=== PATIENT | male | born 1940 | race Caucasian/White ===

== ENCOUNTER → 2018-09-13 | Outpatient (CLI) | payer MEDICARE, OTHER | END | disposition home or self-care (01) | LOC: RADUSWWP 12:08 | PROVIDERS: ATTEND Family Medicine | DX: I73.9 Peripheral vascular disease, unspecified (principal) | CPT/HCPCS: 93923 ==

== ENCOUNTER 2019-07-10 18:55 | Observation (INO) | payer MEDICARE, OTHER ==
[2019-07-10 19:30] LABS: Basophils % (A) 1 %; Eosinophils # (A) 0.3 k/uL (0-0.7); Eosinophils % (A) 5 %; HGB 14.1 gm/dL (13.0-17.5); Lymphocytes # (A) 1.4 k/uL (1.0-4.8); Lymphocytes % (A) 24 %; MCH 33.1 pg (25.0-35.0); MCHC 32.7 g/dL (31.0-37.0); MCV 101.2 fL (80.0-100.0); Mean Platelet Volume 8.5; Monocytes # (A) 0.5 k/uL (0-1.0); Monocytes % (A) 8 %; Neutrophils # (A) 3.5 k/uL (1.3-7.7); Neutrophils % (A) 59 %; Platelet Count 188 k/uL (150-450); RBC 4.25 m/uL (4.30-5.90)
[2019-07-10 19:39] LABS: Albumin 3.8 g/dL (3.5-5.0); Calcium 8.6 mg/dL (8.4-10.2); Magnesium 2.5 mg/dL (1.6-2.3); Potassium 4.4 mmol/L (3.5-5.1); Total Bilirubin 0.5 mg/dL (0.2-1.3); Total Protein 6.6 g/dL (6.3-8.2)
--- NOTE | 2019-07-10 19:42 | XR ---
EXAMINATION TYPE: XR chest 2V DATE OF EXAM: 07/10/2019 COMPARISON: Chest x-ray March 10, 2010. HISTORY: Syncope and weakness. TECHNIQUE: Frontal and lateral views of the chest are obtained. FINDINGS: There is no new suspicious focal air space opacity, pleural effusion, or pneumothorax seen . The cardiac silhouette size is slightly more prominent in upper limits of normal with some new carey tral vascular congestion felt present. Overlying EKG leads redemonstrated. Multilevel spurring in tho racic spine noted. IMPRESSION: New Mild central vascular congestion. No new suspicious focal infiltrate.
[2019-07-10 19:45] LABS: INR 0.9 (<1.2); Partial Thromboplastin Time 21.8 sec (22.0-30.0); Prothrombin Time 9.8 sec (9.0-12.0)
[2019-07-10 19:59] LABS: Appearance,Urine Clear (Clear); Bilirubin,Urine Negative (Negative); Blood,Urine Negative (Negative); Color,Urine Light Yellow; Glucose,Urine (UA) Negative (Negative); Ketones,Urine Negative (Negative); Leukocyte Esterase,Urine Negative (Negative); Nitrite,Urine Negative (Negative); Protein,Urine Trace (Negative); Specific Gravity,Urine 1.011 (1.001-1.035); Urobilinogen,Urine <2.0 mg/dL (<2.0)
--- NOTE | 2019-07-10 21:30 | ED ---
General Adult HPI - General Chief complaint: Syncope Stated complaint: Syncope Time Seen by Provider: 07/10/19 18:59 Source: patient, EMS Mode of arrival: EMS Limitations: no limitations - History of Present Illness Initial comments: The patient is a 78-year-old male with past history of hypertension, hyperlipidemia and chronic kidney disease who presents emergency room and after had a syncopal episode. Episode was witnessed by the patient's . She states that she thought he may have overdone it today. He did [place]work [place]. They then drove home where the patient ended up cutting the grass with a push mower. The patient came into the house ate dinner and afterwards she was sitting outside on a bench. At this point the patient went unresponsive. He slumped over and his eyes rolled back. was unable to arouse him and therefore called her daughter and EMS. EMS instructed her to lower him to the ground however she was unable to do this without him hitting his head. By the time EMS arrived the patient was arousable to tactile stimuli however remained slightly confused. It was noted that the patient had an episode of urinary incontinence. There is no seizure-like activity. The patient did not bite his tongue. Patient reports to feeling well before the incident. Afterwards states that he has dizziness upon standing. No history of seizure activity in the past. Patient denies any chest pain or shortness of breath. Denies any headaches or visual changes. No back or flank pain. Denies fevers or chills. There are no other alleviating, precipitating or modifying factors - Related Data Home Medications Medication Instructions Recorded Confirmed Allopurinol [Zyloprim] 100 mg PO DAILY 07/21/15 07/10/19 Atorvastatin Calcium [Lipitor] 40 mg PO DAILY 07/21/15 07/10/19 Metoprolol Succinate (ER) [Toprol 100 mg PO HS 07/21/15 07/10/19 XL] Terazosin HCl [Hytrin] 10 mg PO HS 07/21/15 07/10/19 Furosemide [Lasix] 20 - 40 mg PO DAILY PRN 07/10/19 07/10/19 Latanoprost/Pf [Latanoprost 0.005% 1 drop BOTH EYES HS 07/10/19 07/10/19 Eye Drop] Losartan [Cozaar] 25 mg PO DAILY 07/10/19 07/10/19 Previous Rx's Medication Instructions Recorded Aspirin 81 mg PO DAILY chew 07/12/19 amLODIPine [Norvasc] 5 mg PO DAILY #30 tab 07/12/19 Allergies Allergy/AdvReac Type Severity Reaction Status Date / Time No Known Allergies Allergy Verified 07/10/19 21:43 Review of Systems ROS Statement: Those systems with pertinent positive or pertinent negative responses have been documented in the HPI. ROS Other: All systems not noted in ROS Statement are negative. Past Medical History Past Medical History: Hyperlipidemia, Hypertension, Renal Disease Additional Past Medical History / Comment(s): GOUT, KIDNEY DISEASE-MODERATE History of Any Multi-Drug Resistant Organisms: None Reported Past Surgical History: Appendectomy Additional Past Surgical History / Comment(s): suzette eyelid, suzette carpal tunnel, D&C, rt knee arthroscopy, left knee replacement Past Anesthesia/Blood Transfusion Reactions: No Reported Reaction Past Psychological History: No Psychological Hx Reported Smoking Status: Former smoker - Past Family History Brother(s) Family Medical History: Cancer Additional Family Medical History / Comment(s): LUNG CANCER Sister(s) Family Medical History: Cancer Mother Family Medical History: Cancer General Exam Limitations: no limitations General appearance: alert, in no apparent distress Head exam: Present: atraumatic, normocephalic, normal inspection Eye exam: Present: normal appearance, PERRL, EOMI. Absent: scleral icterus, conjunctival injection, periorbital swelling ENT exam: Present: normal exam, mucous membranes moist Neck exam: Present: normal inspection. Absent: tenderness, meningismus, lymphadenopathy Respiratory exam: Present: normal lung sounds bilaterally. Absent: respiratory distress, wheezes, rales, rhonchi, stridor Cardiovascular Exam: Present: regular rate, normal rhythm, normal heart sounds. Absent: systolic murmur, diastolic murmur, rubs, gallop, clicks GI/Abdominal exam: Present: soft, normal bowel sounds. Absent: distended, tenderness, guarding, rebound, rigid Extremities exam: Present: normal inspection, full ROM, normal capillary refill. Absent: tenderness, pedal edema, joint swelling, calf tenderness Back exam: Present: normal inspection Neurological exam: Present: alert, oriented X3, CN II-XII intact Psychiatric exam: Present: normal affect, normal mood Skin exam: Present: warm, dry, intact, normal color. Absent: rash Course Vital Signs 07/10/19 07/10/19 07/10/19 18:57 19:40 19:43 Temperature 98 F Pulse Rate 72 70 71 Respiratory 18 Rate Blood Pressure 148/73 159/75 153/86 Blood Pressure [Sitting] Blood Pressure [Standing] Blood Pressure [Supine] O2 Sat by Pulse 98 Oximetry 07/10/19 07/10/19 07/10/19 19:45 21:21 22:14 Temperature Pulse Rate 73 69 Respiratory 18 Rate Blood Pressure 161/73 163/87 Blood Pressure 155/78 [Sitting] Blood Pressure 158/79 [Standing] Blood Pressure 158/88 [Supine] O2 Sat by Pulse 96 Oximetry EKG Findings - EKG Comments: EKG Findings:: EKG demonstrates a normal sinus rhythm with a ventricular rate of 68. IA interval 186. QRS 86. QTC of 440. Inverted T-wave in lead 3. No acute ST segment elevations. Medical Decision Making - Medical Decision Making Upon arrival the patient was placed into room 8. A thorough history and physical exam was performed. He had been established. The patient was already given a 500 mL bolus then EMS. Orthostatics were obtained and were negative on the patient. Laboratory studies demonstrated a creatinine of 2.1. Glucose 147. Mag of 2.5. Chest x-ray demonstrates new mild central vascular congestion with no new suspicious focal infiltrate. The patient was reevaluated and continues to remain symptomatic. No signs of ectopy on EKG cardiac monitoring. I discussed diagnosis, differential treatment options. I did recommend hospital admission for which the patient did agree. I consult cardiology. I discussed case with Dr. Davenport who requested echo and EEG. Patient was in agreement with the treatment plan and the patient was admitted to floor in stable condition - Lab Data Result diagrams: 07/11/19 02:08 07/11/19 02:08 Lab Results 07/10/19 07/10/19 07/10/19 Range/Units 14:21 14:21 14:21 WBC 6.0 (3.8-10.6) k/uL RBC 4.25 L (4.30-5.90) m/uL Hgb 14.1 (13.0-17.5) gm/dL Hct 43.0 (39.0-53.0) % MCV 101.2 H (80.0-100.0) fL MCH 33.1 (25.0-35.0) pg MCHC 32.7 (31.0-37.0) g/dL RDW 13.0 (11.5-15.5) % Plt Count 188 (150-450) k/uL Neutrophils % 59 % Lymphocytes % 24 % Monocytes % 8 % Eosinophils % 5 % Basophils % 1 % Neutrophils # 3.5 (1.3-7.7) k/uL Lymphocytes # 1.4 (1.0-4.8) k/uL Monocytes # 0.5 (0-1.0) k/uL Eosinophils # 0.3 (0-0.7) k/uL Basophils # 0.0 (0-0.2) k/uL PT 9.8 (9.0-12.0) sec INR 0.9 (<1.2) APTT 21.8 L (22.0-30.0) sec Sodium 138 (137-145) mmol/L Potassium 4.4 (3.5-5.1) mmol/L Chloride 108 H (98-107) mmol/L Carbon Dioxide 24 (22-30) mmol/L Anion Gap 6 mmol/L BUN 33 H (9-20) mg/dL Creatinine 2.21 H (0.66-1.25) mg/dL Est GFR (CKD-EPI)AfAm 32 (>60 ml/min/1.73 sqM) Est GFR (CKD-EPI)NonAf 28 (>60 ml/min/1.73 sqM) Glucose 147 H (74-99) mg/dL Calcium 8.6 (8.4-10.2) mg/dL Magnesium 2.5 H (1.6-2.3) mg/dL Total Bilirubin 0.5 (0.2-1.3) mg/dL AST 26 (17-59) U/L ALT 22 (4-49) U/L Alkaline Phosphatase 106 (38-126) U/L Troponin I (0.000-0.034) ng/mL Total Protein 6.6 (6.3-8.2) g/dL Albumin 3.8 (3.5-5.0) g/dL Urine Color Urine Appearance (Clear) Urine pH (5.0-8.0) Ur Specific [place] (1.001-1.035) Urine Protein (Negative) Urine Glucose (UA) (Negative) Urine Ketones (Negative) Urine Blood (Negative) Urine Nitrite (Negative) Urine Bilirubin (Negative) Urine Urobilinogen (<2.0) mg/dL Ur Leukocyte Esterase (Negative) 07/10/19 07/10/19 Range/Units 14:21 19:49 WBC (3.8-10.6) k/uL RBC (4.30-5.90) m/uL Hgb (13.0-17.5) gm/dL Hct (39.0-53.0) % MCV (80.0-100.0) fL MCH (25.0-35.0) pg MCHC (31.0-37.0) g/dL RDW (11.5-15.5) % Plt Count (150-450) k/uL Neutrophils % % Lymphocytes % % Monocytes % % Eosinophils % % Basophils % % Neutrophils # (1.3-7.7) k/uL Lymphocytes # (1.0-4.8) k/uL Monocytes # (0-1.0) k/uL Eosinophils # (0-0.7) k/uL Basophils # (0-0.2) k/uL PT (9.0-12.0) sec INR (<1.2) APTT (22.0-30.0) sec Sodium (137-145) mmol/L Potassium (3.5-5.1) mmol/L Chloride (98-107) mmol/L Carbon Dioxide (22-30) mmol/L Anion Gap mmol/L BUN (9-20) mg/dL Creatinine (0.66-1.25) mg/dL Est GFR (CKD-EPI)AfAm (>60 ml/min/1.73 sqM) Est GFR (CKD-EPI)NonAf (>60 ml/min/1.73 sqM) Glucose (74-99) mg/dL Calcium (8.4-10.2) mg/dL Magnesium (1.6-2.3) mg/dL Total Bilirubin (0.2-1.3) mg/dL AST (17-59) U/L ALT (4-49) U/L Alkaline Phosphatase (38-126) U/L Troponin I <0.012 (0.000-0.034) ng/mL Total Protein (6.3-8.2) g/dL Albumin (3.5-5.0) g/dL Urine Color Light Yellow Urine Appearance Clear (Clear) Urine pH 6.0 (5.0-8.0) Ur Specific [place] 1.011 (1.001-1.035) Urine Protein Trace H (Negative) Urine Glucose (UA) Negative (Negative) Urine Ketones Negative (Negative) Urine Blood Negative (Negative) Urine Nitrite Negative (Negative) Urine Bilirubin Negative (Negative) Urine Urobilinogen <2.0 (<2.0) mg/dL Ur Leukocyte Esterase Negative (Negative) Disposition Clinical Impression: Syncope, CKD (chronic kidney disease) Disposition: ADMITTED IP TO THIS [facility] Condition: Stable Is patient prescribed a controlled substance at d/c from ED?: No Decision to Admit Reason: Admit from EC Decision Date: 07/10/19 Decision Time: 21:30
[2019-07-10] MEDS ORDERED: NALOXONE 0.4 MG/ML 1 ML VIAL IV PRN (21:31)
[2019-07-10] MEDS ORDERED: FUROSEMIDE 20 MG TAB PO PRN (23:16)
[2019-07-10] MEDS: DOXAZOSIN 4 MG TAB PO SCH (23:52)
[2019-07-10] MEDS: METOPROLOL SUCCINATE (ER) 50 MG TAB.ER.24H PO SCH (23:53)
[2019-07-11 02:44] LABS: Basophils % (A) 0 %; Eosinophils # (A) 0.1 k/uL (0-0.7); Eosinophils % (A) 2 %; HGB 13.7 gm/dL (13.0-17.5); Lymphocytes # (A) 1.1 k/uL (1.0-4.8); Lymphocytes % (A) 17 %; MCH 33.5 pg (25.0-35.0); MCHC 32.6 g/dL (31.0-37.0); Macrocytosis Slight; Mean Platelet Volume 8.4; Monocytes # (A) 0.5 k/uL (0-1.0); Monocytes % (A) 8 %; Neutrophils # (A) 4.4 k/uL (1.3-7.7); Neutrophils % (A) 70 %; Platelet Count 169 k/uL (150-450); RBC 4.07 m/uL (4.30-5.90); WBC 6.3 k/uL (3.8-10.6)
[2019-07-11 02:47] LABS: Calcium 8.6 mg/dL (8.4-10.2); Potassium 4.8 mmol/L (3.5-5.1)
[2019-07-11] MEDS ORDERED: SODIUM CHLORIDE 0.9% 1,000 ML IV STA (08:24)
[2019-07-11] MEDS: ATORVASTATIN 40 MG TAB PO SCH (08:49)
[2019-07-11] MEDS: LOSARTAN 25 MG TAB PO SCH (08:50)
[2019-07-11] MEDS: ALLOPURINOL 100 MG TAB PO SCH (08:50)
--- NOTE | 2019-07-11 10:38 | P.CRDCN ---
History of Present Illness History of present illness: HISTORY OF PRESENTING ILLNESS This is a pleasant 78-year-old male past medical history significant for minimal nonobstructive coronary artery disease, hypertension, chronic kidney disease and dyslipidemia. He follows in the office with Dr. Saenz. We have been asked to see in consultation for syncope. He states he was working in the yard yesterday with his cutting grass and cleaning the yard. He had finished cutting and had lunch. Him and his were sitting down on a bench outside. According to the patient the next thing he remembers he was in the back of an ambulance. According to his she asked him to unscrew the sprinkler from the hose and he did so without difficulty then he became unresponsive and his eyes rolled back in his head. He did have lose of bladder control. He woke up in the ambulance feeling diaphoretic and confused. He denies feeling any chest pain, shortness of breath, dizziness, palpitations, diaphoresis, nausea or vomiting prior to passing out. He states he has never passed out before. He has had no change in his diet, no fever/chills, no diarrhea or vomiting. Telemetry tracings have been unremarkable. On EMS arrival blood pressure was in the 150 systolic with a heart rate of 57. DIAGNOSTICS EKG reveals sinus mechanism with no acute ST or T wave abnormalities noted. Chest xray mild venous congestion. Laboratory reviewed, WBC 6.3, hemoglobin 13.7, platelets 169, sodium 137, potassium 4.8, creatinine 2.1 on, magnesium 2.5, cardiac enzymes negative 2. Current cardiac medications include atorvastatin 40 mg daily, Lasix daily when necessary, Toprol-XL 100 mg at bedtime and losartan 25 mg daily. Most recent echocardiogram obtained in the office March 2019 revealed normal LV systolic function with no wall motion abnormalities REVIEW OF SYSTEMS At the time of my exam: CONSTITUTIONAL: Denies fever or chills. CARDIOVASCULAR: Denies chest pain, shortness of breath, orthopnea, PND or palpitations. RESPIRATORY: Denies cough. GASTROINTESTINAL: Denies abdominal pain, diarrhea, constipation, nausea or vomiting. MUSCULOSKELETAL: Denies myalgias. NEUROLOGIC: Denies numbness, tingling or weakness. ENDOCRINE: Denies fatigue, weight change, polydipsia or polyurina. GENITOURINARY: Denies burning, hematuria or urgency with micturation. HEMATOLOGIC: Denies history of anemia or bleeding. PHYSICAL EXAMINATION Blood pressure 170/79 heart rate 60 afebrile and maintaining oxygen saturation on room air. CONSTITUTIONAL: No apparent distress. HEENT: Head is normocephalic. Pupils are equal, round. Sclerae anicteric. Mucous membranes of the mouth are moist. No JVD. No carotid bruit. CHEST EXAMINATION: Lungs are clear to auscultation. No chest wall tenderness is noted on palpation or with deep breathing. HEART EXAMINATION: Regular rate and rhythm. S1, S2 heard. No murmurs, gallops or rub. ABDOMEN: Soft, nontender. Positive bowel sounds. EXTREMITIES: 2+ peripheral pulses, no lower extremity edema and no calf te nderness. NEUROLOGIC EXAMINATION: Patient is awake, alert and oriented x3. ASSESSMENT Syncopal episode, clinically sounds neurologic driven given his normal vital signs and telemetry tracings on EMS arrival Hypertension, uncontrolled Hypermagnesemia Dyslipidemia Chronic kidney disease Coronary artery disease, non-obstructive PLAN Orthostatic vital signs obtained were unremarkable. No evidence of arrhythmia on telemetry. Ongoing neurologic evaluation. Follow-up with Dr. Saenz in 1-2 weeks. Thank you kindly for this consultation. Nurse Practitioner note has been reviewed, I agree with a documented findings and plan of care. Patient was seen and examined. Past Medical History Past Medical History: Hyperlipidemia, Hypertension, Renal Disease Additional Past Medical History / Comment(s): GOUT, KIDNEY DISEASE-MODERATE History of Any Multi-Drug Resistant Organisms: None Reported Past Surgical History: Appendectomy Additional Past Surgical History / Comment(s): suzette eyelid, suzette carpal tunnel, D&C, rt knee arthroscopy, left knee replacement Past Anesthesia/Blood Transfusion Reactions: No Reported Reaction Past Psychological History: No Psychological Hx Reported Smoking Status: Former smoker - Past Family History Brother(s) Family Medical History: Cancer Additional Family Medical History / Comment(s): LUNG CANCER Sister(s) Family Medical History: Cancer Mother Family Medical History: Cancer Medications and Allergies Home Medications Medication Instructions Recorded Confirmed Type Allopurinol [Zyloprim] 100 mg PO DAILY 07/21/15 07/10/19 History Atorvastatin Calcium [Lipitor] 40 mg PO DAILY 07/21/15 07/10/19 History Metoprolol Succinate (ER) [Toprol 100 mg PO HS 07/21/15 07/10/19 History Xl] Terazosin HCl [Hytrin] 10 mg PO HS 07/21/15 07/10/19 History Furosemide [Lasix] 20 - 40 mg PO DAILY PRN 07/10/19 07/10/19 History Latanoprost/Pf [Latanoprost 0.005% 1 drop BOTH EYES HS 07/10/19 07/10/19 History Eye Drop] Losartan [Cozaar] 25 mg PO DAILY 07/10/19 07/10/19 History Allergies Allergy/AdvReac Type Severity Reaction Status Date / Time No Known Allergies Allergy Verified 07/10/19 21:43 Physical Exam Vitals: Vital Signs Temp Pulse Pulse Resp BP BP BP 07/11/19 04:00 97.3 F L 68 15 07/10/19 23:25 73 16 07/10/19 22:40 98.2 F 73 16 07/10/19 22:14 69 18 163/87 07/10/19 21:21 155/78 158/79 07/10/19 19:45 73 161/73 07/10/19 19:43 71 153/86 07/10/19 19:40 70 159/75 07/10/19 18:57 98 F 72 18 148/73 BP Pulse Ox 07/11/19 04:00 169/77 97 07/10/19 23:25 07/10/19 22:40 184/79 99 07/10/19 22:14 96 07/10/19 21:21 158/88 07/10/19 19:45 07/10/19 19:43 07/10/19 19:40 07/10/19 18:57 98 Intake and Output 07/10/19 07/11/19 07/11/19 22:59 06:59 14:59 Other: # Voids 1 1 Weight 81.647 kg Results 07/11/19 02:08 07/11/19 02:08 Cardiac Enzymes 07/10/19 07/10/19 07/11/19 Range/Units 14:21 14:21 02:08 AST 26 (17-59) U/L Troponin I <0.012 <0.012 (0.000-0.034) ng/mL Coagulation 07/10/19 Range/Units 14:21 PT 9.8 (9.0-12.0) sec APTT 21.8 L (22.0-30.0) sec CBC 07/10/19 07/11/19 Range/Units 14:21 02:08 WBC 6.0 6.3 (3.8-10.6) k/uL RBC 4.25 L 4.07 L (4.30-5.90) m/uL Hgb 14.1 13.7 (13.0-17.5) gm/dL Hct 43.0 42.0 (39.0-53.0) % Plt Count 188 169 (150-450) k/uL Comprehensive Metabolic Panel 07/10/19 07/11/19 Range/Units 14:21 02:08 Sodium 138 137 (137-145) mmol/L Potassium 4.4 4.8 (3.5-5.1) mmol/L Chloride 108 H 108 H (98-107) mmol/L Carbon Dioxide 24 24 (22-30) mmol/L BUN 33 H 33 H (9-20) mg/dL Creatinine 2.21 H 2.11 H (0.66-1.25) mg/dL Glucose 147 H 126 H (74-99) mg/dL Calcium 8.6 8.6 (8.4-10.2) mg/dL AST 26 (17-59) U/L ALT 22 (4-49) U/L Alkaline Phosphatase 106 (38-126) U/L Total Protein 6.6 (6.3-8.2) g/dL Albumin 3.8 (3.5-5.0) g/dL Current Medications Generic Name Dose Route Start Last Admin Trade Name Freq PRN Reason Stop Dose Admin Allopurinol 100 mg 07/11/19 09:00 Zyloprim PO DAILY [facility] Atorvastatin Calcium 40 mg 07/11/19 09:00 Lipitor PO DAILY [facility] Doxazosin Mesylate 8 mg 07/10/19 23:30 07/10/19 23:52 Cardura PO 8 mg HS MARY ANN Administration Furosemide 20 mg 07/10/19 23:16 Lasix PO DAILY PRN swelling Losartan Potassium 25 mg 07/11/19 09:00 Cozaar PO DAILY [facility] Metoprolol Succinate 100 mg 07/10/19 23:30 07/10/19 23:53 Toprol Xl PO 100 mg HS MARY ANN Administration Naloxone HCl 0.2 mg 07/10/19 21:31 Narcan IV Q2M PRN Opioid Reversal Intake and Output 07/10/19 07/11/19 07/11/19 22:59 06:59 14:59 Other: # Voids 1 1 Weight 81.647 kg 07/11/19 02:08 07/11/19 02:08
--- NOTE | 2019-07-11 10:47 | ECHOF ---
Referral Reason:syncope MEASUREMENTS -------- HEIGHT: 170.2 cm WEIGHT: 81.6 kg BP: 169/77 IVSd: 1.2 cm (0.6 - 1.1) LVIDd: 4.2 cm (3.9 - 5.3) LVPWd: 1.1 cm (0.6 - 1.1) IVSs: 1.8 cm LVIDs: 2.9 cm LVPWs: 1.6 cm RVIDd: 3.1 cm (< 3.3) LAESV Index (A-L): 29.24 ml/m Ao Diam: 2.6 cm (2.0 - 3.7) AV Cusp: 1.6 cm (1.5 - 2.6) EPSS: 0.5 cm MV E Jhonny: 0.90 m/s MV DecT: 130 ms MV A Jhonny: 0.90 m/s MV E/A Ratio: 1.00 RAP: 5.00 mmHg RVSP: 36.08 mmHg MV EF SLOPE: 56.42 mm/s (70 - 150) MV EXCURSION: 15.18 mm (> 18.000) FINDINGS -------- Sinus rhythm. This was a technically adequate study. The left ventricular size is normal. There is mild concentric left ventricular hypertrophy. Overa ll left ventricular systolic function is normal with, an EF between 55 - 60 %. The diastolic fillin g pattern is normal for the age of the patient 12.21. The right ventricle is mildly enlarged. LA is midly dilated 29-33ml/m2. The right atrium is mildly enlarged. Interatrial and interventricular septum intact. There is no evidence of aortic regurgitation. There is no evidence of aortic stenosis. Mild mitral regurgitation is present. Mild tricuspid regurgitation present. There is mild pulmonary hypertension. The right ventricular systolic pressure, as measured by Doppler, is 36.08mmHg. There is no pulmonic regurgitation present. The aortic root size is normal. IVC Not well visulized. There is no pericardial effusion. CONCLUSIONS -------- 1. Sinus rhythm. 2. This was a technically adequate study. 3. The left ventricular size is normal. 4. There is mild concentric left ventricular hypertrophy. 5. Overall left ventricular systolic function is normal with, an EF between 55 - 60 %. 6. The diastolic filling pattern is normal for the age of the patient 12.21 7. The right ventricle is mildly enlarged. 8. LA is midly dilated 29-33ml/m2. 9. The right atrium is mildly enlarged. 10. Interatrial and interventricular septum intact. 11. There is no evidence of aortic regurgitation. 12. There is no evidence of aortic stenosis. 13. Mild mitral regurgitation is present. 14. Mild tricuspid regurgitation present. 15. There is mild pulmonary hypertension. 16. The right ventricular systolic pressure, as measured by Doppler, is 36.08mmHg. 17. There is no pulmonic regurgitation present. 18. The aortic root size is normal. 19. IVC Not well visulized. 20. There is no pericardial effusion. BANQUET LINE COOK: Lynette Dominique RDCS
[2019-07-11] MEDS: SODIUM CHLORIDE 0.9% 1,000 ML IV SCH ×2 (14:06→19:40)
--- NOTE | 2019-07-11 15:45 | MR ---
EXAMINATION TYPE: MR brain wo/w con DATE OF EXAM: 07/11/2019 COMPARISON: None HISTORY: Patient Passed out CONTRAST: Performed utilizing 8 mL intravenous Gadavist gadolinium contrast. TECHNIQUE: Multiplanar, multiecho imaging on a 3.0 Carla magnet is performed through the brain. Stud y is performed within 24 hours of arrival to the hospital. The craniovertebral junction is normal. The pituitary is normal. Diffusion-weighted imaging is performed. No abnormal hyperintensity is present to suggest an acute i ntracranial infarct or acute ischemic change. There are scattered punctate areas of hyperintensity on T2 and Inversion Recovery weighted sequences which are non-specific but can be related to microvascular ischemic changes. This is greater than exp ected for the patient age. Differential diagnosis could include vasculitis, multiple sclerosis, Lyme disease. Ventricles and sulci are appropriate for the patient age. IMPRESSIONS: 1. Multiple bilateral deep white matter scattered punctate hyperintensities most likely related to mi crovascular ischemic change.
--- NOTE | 2019-07-11 17:07 | EEG ---
ELECTROENCEPHALOGRAM REPORT DATE OF SERVICE: 07/11/2019 PREAMBLE: This is a 78-year-old male with syncopal spell. EEG FINDINGS: This is a 21-channel routine EEG recording in a patient utilizing 10-20 international system with referential and bipolar montages. The background consists of well developed, well regulated, moderate voltage activity in 9-10 hertz alpha. Background is posterior-dominant and is reactive to eye opening and closing. Photic driving response was seen with some flash frequencies. Drowsiness was seen with appearance of bilaterally symmetric theta frequency rhythm. Deeper stages of sleep were not seen. No focal or generalized epileptiform activity was seen. EKG rhythm lead revealed no arrhythmia. IMPRESSION: This is a normal awake and drowsy EEG. No focal, lateralized or epileptiform activity was seen. MMSHRUTHIL / JAYANTN: [id number] / MTDD
--- NOTE | 2019-07-11 17:32 | P.CNNES ---
History of Present Illness Consult date: 07/11/19 Requesting physician: Wander Davenport Reason for Consult: Passed out History of Present Illness: Patient is a 78-year-old male with history of hypertension, hyperlipidemia and chronic renal disease, came to the hospital after he had a syncopal episode. Episode was witnessed by patient's . Patient did some housework [place] [facility] and his feels that he may have overdone it. They drove home where the patient ended up cutting the grass with a push mower. Patient was sitting outside on a bench. He was talking to his , who asked him to help her move the swing. He helped her and then put it back. He then again sat down in the chair. At this point the patient went unresponsive without any warning, and next thing he woke up in the ambulance. According to his , he slumped over and his eyes rolled back. was unable to arouse him and thereafter called her daughter and the EMS. EMS instructed patient to be lowered to the ground. She was unable to do this without have hitting his head. By the time EMS arrived, patient was arousable to tactile stimuli, however remains slightly confused. Patient did lose control of urine with this episode. No seizure-like activity noted. No tongue bite. Patient reports to feeling well before the incident. Afterwards he was feeling dizziness upon standing. No history of seizures in the past. No complaints of chest pain or shortness of breath. No headache or visual disturbance. No fever or chills. Patient states that he does take a diuretic. As he had driven back home from up [place], he did not drink enough water although he did take his diuretic. He thinks he may have been dehydrated. Patient's vitals on arrival was blood pressure 148/73, pulse rate 72 and temperature 98.0. Chest x-ray showed new mild central vascular congestion. No new suspicious focal infiltrate. EKG shows normal sinus rhythm. 2-D echo with sinus rhythm, mild concentric LVH. EF is 55-60%. Left atrium is mildly dilated. Patient's blood test shows normal sodium and potassium, BUN 33, creatinine 2.21. CBC is normal with elevated MCV 101.2. Liver panel and UA negative. Review of Systems Completely unremarkable at this time. Except for as per HPI. All 14 point of review of systems reviewed. Past Medical History Past Medical History: Hyperlipidemia, Hypertension, Renal Disease Additional Past Medical History / Comment(s): GOUT, KIDNEY DISEASE-MODERATE History of Any Multi-Drug Resistant Organisms: None Reported Past Surgical History: Appendectomy Additional Past Surgical History / Comment(s): suzette eyelid, suzette carpal tunnel, D&C, rt knee arthroscopy, left knee replacement Past Anesthesia/Blood Transfusion Reactions: No Reported Reaction Past Psychological History: No Psychological Hx Reported Smoking Status: Former smoker - Past Family History Brother(s) Family Medical History: Cancer Additional Family Medical History / Comment(s): LUNG CANCER Sister(s) Family Medical History: Cancer Mother Family Medical History: Cancer Medications and Allergies Home Medications Medication Instructions Recorded Confirmed Type Allopurinol [Zyloprim] 100 mg PO DAILY 07/21/15 07/10/19 History Atorvastatin Calcium [Lipitor] 40 mg PO DAILY 07/21/15 07/10/19 History Metoprolol Succinate (ER) [Toprol 100 mg PO HS 07/21/15 07/10/19 History Xl] Terazosin HCl [Hytrin] 10 mg PO HS 07/21/15 07/10/19 History Furosemide [Lasix] 20 - 40 mg PO DAILY PRN 07/10/19 07/10/19 History Latanoprost/Pf [Latanoprost 0.005% 1 drop BOTH EYES HS 07/10/19 07/10/19 History Eye Drop] Losartan [Cozaar] 25 mg PO DAILY 07/10/19 07/10/19 History Allergies Allergy/AdvReac Type Severity Reaction Status Date / Time No Known Allergies Allergy Verified 07/10/19 21:43 Physical Examination - Vital Signs Vital Signs: Vital Signs Temp Pulse Pulse Resp BP BP BP 07/11/19 13:31 97.9 F 64 16 149/68 07/11/19 08:32 97.7 F 60 16 170/79 07/11/19 04:00 97.3 F L 68 15 07/10/19 23:25 73 16 07/10/19 22:40 98.2 F 73 16 07/10/19 22:14 69 18 163/87 07/10/19 21:21 155/78 158/79 07/10/19 19:45 73 161/73 07/10/19 19:43 71 153/86 07/10/19 19:40 70 159/75 07/10/19 18:57 98 F 72 18 148/73 BP Pulse Ox 07/11/19 13:31 96 07/11/19 08:32 95 07/11/19 04:00 169/77 97 07/10/19 23:25 07/10/19 22:40 184/79 99 07/10/19 22:14 96 07/10/19 21:21 158/88 07/10/19 19:45 07/10/19 19:43 07/10/19 19:40 07/10/19 18:57 98 Intake and Output 07/10/19 07/11/19 07/11/19 22:59 06:59 14:59 Intake Total 400 Balance 400 Intake: Oral 400 Other: Voiding Method Toilet # Voids 1 1 1 Weight 81.647 kg On examination patient is an elderly male, in no acute distress. Patient is alert and awake, fully oriented to time place and person. Speech and language functions are normal. Attention and concentration, fund of knowledge is adequate. On cranial examination pupils are round and reacting to light, visual woods are full, face is symmetric, tongue protrudes the midline. Palatal elevation and sensation normal. Hearing and shoulder shrug normal. On muscle strength testing there is no pronator drift and the strength is normal in arms and legs distally and proximally. Reflexes are 1+ and plantars downgoing. Sensory touch is equal. No ataxia for [id number] testing. Tone and bulk of muscles normal. Gait deferred. Patient denies any problem with walking. There is no carotid bruit or murmur, S1 and S2 audible. Peripheral pulses present. Abdomen soft nontender. Chest is clear. Results - Laboratory Findings CBC and BMP: 07/11/19 02:08 07/11/19 02:08 Abnormal Lab Findings: Abnormal Labs 07/10/19 07/10/19 07/10/19 14:21 14:21 14:21 RBC 4.25 L MCV 101.2 H APTT 21.8 L D-Dimer Chloride 108 H BUN 33 H Creatinine 2.21 H Glucose 147 H Magnesium 2.5 H Urine Protein 07/10/19 07/11/19 07/11/19 19:49 02:08 02:08 RBC 4.07 L MCV 103.0 H APTT D-Dimer Chloride 108 H BUN 33 H Creatinine 2.11 H Glucose 126 H Magnesium Urine Protein Trace H 07/11/19 10:34 RBC MCV APTT D-Dimer 0.78 H Chloride BUN Creatinine Glucose Magnesium Urine Protein Assessment and Plan Assessment: * Syncopal spell, likely vasovagal. Patient probably was dehydrated leading to syncopal spell. * Hypertension * Chronic renal insufficiency * Coronary artery disease. Plan: * Patient had MRI of the brain, which revealed no acute process. Only small vessel ischemic change. * EEG was normal. * 2-D echo showed mild concentric LVH. EF is 55-60%. Left atrium is mildly dilated. * Await carotid Doppler. If negative, will be clear for discharge from neurology point. * Consider starting aspirin 81 mg daily for no medical contra indications.
--- NOTE | 2019-07-11 18:02 | P.HPIM ---
History of Present Illness H&P Date: 07/11/19 Chief Complaint: Past out History of presenting complaint: This is 78-year-old patient of Dr. Tejada. Chronic stable medical conditions include hyperlipidemia, hypertension, chronic kidney disease with a GFR around 35% follows the Dr. Barrios, gout. Patient yesterday was cutting the grass temperature also was around 82 that he came back to sit down on the bench and was starting a meal with his . She asked him to fix the sprinkler head next thing patient remembers is waking up in the embolus. Denies any palpitation or chest pain prior to the episode. He thinks he may not have it in of fluids. Patient's was present bed. She told the ER that she thinks the patient may have overdone the work. He'll also done some work in the higher house prior to the same. Patient has already eaten dinner. He is simply become unresponsive slumped over to the site denies any lower back. When EMS arrived the patient was arousable to tactile stimuli and metabolic confused. He had some urinary incontinence. No seizure-like activity was described. No biting of the tongue. Patient did complain of feeling dizzy upon standing thereafter. No prior history of head injury or seizure activity. When I saw the patient this morning patient's feeling rather well and back to his baseline. Review of systems: GEN.: None EYES: None HEENT: None NECK: None RESPIRATORY: None CARDIOVASCULAR: None GASTROINTESTINAL: None GENITOURINARY: None MUSCULOSKELETAL: Joint pains] LYMPHATICS: None HEMATOLOGICAL: None PSYCHIATRY: None NEUROLOGICAL: No focal symptoms Past medical history to include: Hyperlipidemia, hypertension, chronic kidney disease with a GFR around 35%, gout , osteoarthritis Social history: , patient started smoking at the age of 19 and quit in 1961. No alcohol. Retired. Physical examination: VITAL SIGNS: 98, 72, 18, 148/73, 98% on room air-on presentation. Patient was not orthostatic in the ER. GENERAL: BMI 28.2, sitting up in bed, comfortable. EYES: Pupils equal. Conjunctiva normal. HEENT: External appearance of nose and ears normal, oral cavity grossly normal. NECK: JVD not raised; masses not palpable. HEART: First and second heart sounds are normal; no edema. LUNGS: Respiratory rate normal; clear to auscultation. ABDOMEN: Soft, nontender, liver spleen not palpable, no masses palpable MUSCULOSKELETAL evidence of OA. PSYCH: Alert and oriented x3; mood and affect normal. NEUROLOGICAL: Cranial nerves grossly intact; no facial asymmetry, power and sensation grossly intact. LYMPHATICS: No lymph nodes palpable in the axilla and neck INVESTIGATIONS, reviewed in the clinical context: White count 16:40.1 potassium 4.4 bun 33 creatinine 2.21 Troponin I 2 negative UA positive for trace protein EKG tracing personally reviewed by me-to sinus rhythm Chest x-ray film personally reviewed by me-some possible venous prominence Assessment: -This is a patient was somewhat overworked yesterday was working also with a tem perature 82 didn't take much fluids then passed out. Clinically no seizure- like activity. Patient was incontinent of urine once. Was dizzy lightheaded following the episode. Did get IV fluids. Following that there was no orthostatic. Troponin is negative. Most likely vasovagal. Seizure unlikely but I to rule out the same. Rule out any underlying arrhythmia by telemetry. -Hyperlipidemia -Essential hypertension -Chronic kidney disease stage III from likely nephrosclerosis -Chronic gout Plan: Home medications resumed. Hold off Lasix. Given IV fluids. MRI of the brain, carotid Doppler and EEG was ordered. Patient otherwise looking otherwise well right now. Lovenox for DVT prophylaxis. Neurology consultation. Care was discussed in detail the patient. Past Medical History Past Medical History: Hyperlipidemia, Hypertension, Renal Disease Additional Past Medical History / Comment(s): GOUT, KIDNEY DISEASE-MODERATE History of Any Multi-Drug Resistant Organisms: None Reported Past Surgical History: Appendectomy Additional Past Surgical History / Comment(s): suzette eyelid, suzette carpal tunnel, D&C, rt knee arthroscopy, left knee replacement Past Anesthesia/Blood Transfusion Reactions: No Reported Reaction Past Psychological History: No Psychological Hx Reported Smoking Status: Former smoker - Past Family History Brother(s) Family Medical History: Cancer Additional Family Medical History / Comment(s): LUNG CANCER Sister(s) Family Medical History: Cancer Mother Family Medical History: Cancer Medications and Allergies Home Medications Medication Instructions Recorded Confirmed Type Allopurinol [Zyloprim] 100 mg PO DAILY 07/21/15 07/10/19 History Atorvastatin Calcium [Lipitor] 40 mg PO DAILY 07/21/15 07/10/19 History Metoprolol Succinate (ER) [Toprol 100 mg PO HS 07/21/15 07/10/19 History Xl] Terazosin HCl [Hytrin] 10 mg PO HS 07/21/15 07/10/19 History Furosemide [Lasix] 20 - 40 mg PO DAILY PRN 07/10/19 07/10/19 History Latanoprost/Pf [Latanoprost 0.005% 1 drop BOTH EYES HS 07/10/19 07/10/19 History Eye Drop] Losartan [Cozaar] 25 mg PO DAILY 07/10/19 07/10/19 History Allergies Allergy/AdvReac Type Severity Reaction Status Date / Time No Known Allergies Allergy Verified 07/10/19 21:43 Physical Exam Vitals: Vital Signs Temp Pulse Pulse Resp BP BP BP 07/11/19 08:32 97.7 F 60 16 170/79 07/11/19 04:00 97.3 F L 68 15 07/10/19 23:25 73 16 07/10/19 22:40 98.2 F 73 16 07/10/19 22:14 69 18 163/87 07/10/19 21:21 155/78 158/79 07/10/19 19:45 73 161/73 07/10/19 19:43 71 153/86 07/10/19 19:40 70 159/75 07/10/19 18:57 98 F 72 18 148/73 BP Pulse Ox 07/11/19 08:32 95 07/11/19 04:00 169/77 97 07/10/19 23:25 07/10/19 22:40 184/79 99 07/10/19 22:14 96 07/10/19 21:21 158/88 07/10/19 19:45 07/10/19 19:43 07/10/19 19:40 07/10/19 18:57 98 Intake and Output 07/10/19 07/11/19 07/11/19 22:59 06:59 14:59 Other: Voiding Method Toilet # Voids 1 1 Weight 81.647 kg Results CBC & Chem 7: 07/11/19 02:08 07/11/19 02:08 Labs: Abnormal Lab Results - Last 24 Hours (Table) 07/10/19 07/10/19 07/10/19 Range/Units 14:21 14:21 14:21 RBC 4.25 L (4.30-5.90) m/uL MCV 101.2 H (80.0-100.0) fL APTT 21.8 L (22.0-30.0) sec Chloride 108 H (98-107) mmol/L BUN 33 H (9-20) mg/dL Creatinine 2.21 H (0.66-1.25) mg/dL Glucose 147 H (74-99) mg/dL Magnesium 2.5 H (1.6-2.3) mg/dL Urine Protein (Negative) 07/10/19 07/11/19 07/11/19 Range/Units 19:49 02:08 02:08 RBC 4.07 L (4.30-5.90) m/uL MCV 103.0 H (80.0-100.0) fL APTT (22.0-30.0) sec Chloride 108 H (98-107) mmol/L BUN 33 H (9-20) mg/dL Creatinine 2.11 H (0.66-1.25) mg/dL Glucose 126 H (74-99) mg/dL Magnesium (1.6-2.3) mg/dL Urine Protein Trace H (Negative) Thrombosis Risk Factor Assmnt - Choose All That Apply Each Factor Represents 1 point: Obesity (BMI >25) Other Risk Factors: No Other congenital or acquired thrombophilia - If yes, enter type in comment: No Thrombosis Risk Factor Assessment Total Risk Factor Score: 1 Thrombosis Risk Factor Assessment Level: Low Risk
--- NOTE | 2019-07-11 18:28 | US ---
EXAMINATION TYPE: US carotid duplex BILAT DATE OF EXAM: 07/11/2019 COMPARISON: NONE CLINICAL HISTORY: passed out. Syncope per order. HTN. Previous smoker. EXAM MEASUREMENTS: RIGHT: Peak Systolic Velocity (PSV) cm/sec ----- Right CCA: 72.1 ----- Right ICA: 150.7 ----- Right ECA: 99.3 ICA/CCA ratio: 2.1 RIGHT: End Diastole cm/sec ----- Right CCA: 12.8 ----- Right ICA: 29.6 ----- Right ECA: 9.1 LEFT: Peak Systolic Velocity (PSV) cm/sec ----- Left CCA: 71.0 ----- Left ICA: 69.9 ----- Left ECA: 82.0 ICA/CCA ratio: 1.0 LEFT: End Diastole cm/sec ----- Left CCA: 10.6 ----- Left ICA: 20.4 ----- Left ECA: 9.5 VERTEBRALS (direction of flow): Right Vertebral: Antegrade Left Vertebral: Antegrade Rhythm: Normal Intimal thickening is seen bilaterally. Hyperechoic plaque with posterior shadowing is seen within th e right carotid bifurcation, right ICA, and left prox-mid CCA. Elevated velocities obtained right pro x and mid ICA. Stenosis is present according to velocities, ratio, and visualized plaque within the r ight ICA. IMPRESSION: Moderate to severe plaque causing stenosis suspected 50-69% in the proximal right manager of international al carotid artery. Further investigation with CTA or MRA of neck is advised to better evaluate and ch aracterize. Criteria for Assigning % of Stenosis / Diameter reduction (Estimation based on the indirect measurements of the internal carotid artery velocities (ICA PSV). 1. Normal (no stenosis)=ICA PSV < 125 cm/s: ratio < 2.0: ICA EDV<40 cm/s. 2. Less than 50% stenosis=ICA PSV < 125 cm/s: ratio < 2.0: ICA EDV<40 cm/s. 3. 50 to 69% stenosis=ICA PSV of 125 to 230 cm/s: ration 2.0 ? 4.0: ICA EDV 40-100 cm/s. 4. Greater than 70% stenosis to near occlusion= ICA PSV > 230 cm/s: ratio > 4.0: ICA EDV > 100 cm/s. 5. Near occlusion= ICA PSV velocities may be low or undetectable: variable ratio and ICA EDV. 6. Total occlusion=unable to detect flow.
[2019-07-11] MEDS: METOPROLOL SUCCINATE (ER) 50 MG TAB.ER.24H PO SCH (19:40)
[2019-07-11] MEDS: DOXAZOSIN 4 MG TAB PO SCH (19:40)
[2019-07-12] MEDS: SODIUM CHLORIDE 0.9% 1,000 ML IV SCH (04:33)
[2019-07-12] MEDS: ASPIRIN 81 MG PO SCH ×2 (04:34)
[2019-07-12 07:25] VITALS: RESP 16
[2019-07-12] MEDS: ALLOPURINOL 100 MG TAB PO SCH (07:35)
[2019-07-12] MEDS: LOSARTAN 25 MG TAB PO SCH (07:35)
[2019-07-12] MEDS: ATORVASTATIN 40 MG TAB PO SCH (07:35)
[2019-07-12] MEDS ORDERED: amLODIPine 5 MG TAB PO STA (11:30)
[2019-07-12 12:04] VITALS: BP 185/83; PULSE 67; TEMP 97.7
--- NOTE | 2019-07-13 20:50 | P.DS ---
Providers Date of admission: 07/10/19 21:31 Expected date of discharge: 07/12/19 Attending physician: Wander Davenport Consults: 07/10/19 21:31 Consult Physician Urgent Consulting Provider: [facility] Consult Reason/Comments: acute syncope Do you want consulting provider notified?: Yes 07/11/19 12:42 Consult Physician Routine Consulting Provider: Birdie Byrd Consult Reason/Comments: passed out Do you want consulting provider notified?: Yes Primary care physician: Bipin Tejada [facility] Course: Chief Complaint: Past out History of presenting complaint: This is 78-year-old patient of Dr. Tejada. Chronic stable medical conditions include hyperlipidemia, hypertension, chronic kidney disease with a GFR around 35% follows the sav Ramirez. Patient yesterday was cutting the grass temperature also was around 82 that he came back to sit down on the bench and was starting a meal with his . She asked him to fix the sprinkler head next thing patient remembers is waking up in the embolus. Denies any palpitation or chest pain prior to the episode. He thinks he may not have it in of fluids. Patient's was present bed. She told the ER that she thinks the patient may have overdone the work. He'll also done some work in the higher house prior to the same. Patient has already eaten dinner. He is simply become unresponsive slumped over to the site denies any lower back. When EMS arrived the patient was arousable to tactile stimuli and metabolic confused. He had some urinary incontinence. No seizure-like activity was described. No biting of the tongue. Patient did complain of feeling dizzy upon standing thereafter. No prior history of head injury or seizure activity. When I saw the patient this morning patient's feeling rather well and back to his baseline. Patient denied any swelling of the legs. No history of prolonged inactivity Patient neurological workup was negative. That included carotid Doppler, EEG, brain MRI, 2-D echo,. Episode felt to be vasovagal. Today-patient's feeling well. No new episodes. Keep to go home. Consultation: Dr. Moran-neurology Dr. Abilio Diaz from cardiology Physical examination: VITAL SIGNS: 97.7, 67, 16, 1 6772, 98% on room air GENERAL: Sitting up, comfortable EYES: Pupils equal. Conjunctiva normal. HEENT: External appearance of nose and ears normal, oral cavity grossly normal. NECK: JVD not raised; masses not palpable. HEART: First and second heart sounds are normal; no edema. LUNGS: Respiratory rate normal; clear to auscultation. ABDOMEN: Soft, nontender, liver spleen not palpable, no masses palpable MUSCULOSKELETAL evidence of OA. No swelling of the lower extremity. PSYCH: Alert and oriented x3; mood and affect normal. NEUROLOGICAL: Cranial nerves grossly intact; no facial asymmetry, power and sensation grossly intact. INVESTIGATIONS, reviewed in the clinical context: White count 16:40.1 potassium 4.4 bun 33 creatinine 2.21 Troponin I 2 negative UA positive for trace protein EKG tracing personally reviewed by me-to sinus rhythm Chest x-ray film personally reviewed by me-some possible venous prominence Carotid Doppler-moderate to severe block causing stenosis 50-69% in the proximal right ICA. 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 Henderson as outpatient Disposition: Home Patient Condition at Discharge: Stable Plan - Discharge Summary New Discharge Prescriptions: New Aspirin 81 mg PO DAILY chew amLODIPine [Norvasc] 5 mg PO DAILY #30 tab Continue Metoprolol Succinate (ER) [Toprol XL] 100 mg PO HS Terazosin HCl [Hytrin] 10 mg PO HS Atorvastatin Calcium [Lipitor] 40 mg PO DAILY Allopurinol [Zyloprim] 100 mg PO DAILY Losartan [Cozaar] 25 mg PO DAILY Furosemide [Lasix] 20 - 40 mg PO DAILY PRN PRN Reason: swelling Latanoprost/Pf [Latanoprost 0.005% Eye Drop] 1 drop BOTH EYES HS Discharge Medication List Allopurinol [Zyloprim] 100 mg PO DAILY 07/21/15 [History] Atorvastatin Calcium [Lipitor] 40 mg PO DAILY 07/21/15 [History] Metoprolol Succinate (ER) [Toprol XL] 100 mg PO HS 07/21/15 [History] Terazosin HCl [Hytrin] 10 mg PO HS 07/21/15 [History] Furosemide [Lasix] 20 - 40 mg PO DAILY PRN 07/10/19 [History] Latanoprost/Pf [Latanoprost 0.005% Eye Drop] 1 drop BOTH EYES HS 07/10/19 [History] Losartan [Cozaar] 25 mg PO DAILY 07/10/19 [History] Aspirin 81 mg PO DAILY chew 07/12/19 [Rx] amLODIPine [Norvasc] 5 mg PO DAILY #30 tab 07/12/19 [Rx] Follow up Appointment(s)/Referral(s): Luna Barrios MD [STAFF PHYSICIAN] - 07/22/19 1:20 pm (Tele-health appointment) Tyler Saenz MD [STAFF PHYSICIAN] - 07/25/19 10:00 am (With Eli CORTZE) Bipin Tejada MD [Primary Care Provider] - 07/18/19 8:30 am Jose D Henderson MD [STAFF PHYSICIAN] - 07/25/19 1:30 pm (carotid artery) Patient Instructions/Handouts: Syncope (DC) Discharge Disposition: HOME SELF-CARE
== END 2019-07-12 12:52 | disposition home or self-care (01) ==
LOC: EC 18:55 → 1SOBS 21:31
PROVIDERS: ADMIT Hospitalist; ATTEND Hospitalist
DX: R55 Syncope and collapse (principal); E83.41 Hypermagnesemia; R32 Unspecified urinary incontinence; I12.9 Hypertensive chronic kidney disease with stage 1 through stage 4 chronic kidney disease, or unspecified chronic kidney disease; N18.3 Chronic kidney disease, stage 3 (moderate); E78.5 Hyperlipidemia, unspecified; R09.89 Other specified symptoms and signs involving the circulatory and respiratory systems; I67.82 Cerebral ischemia; I08.1 Rheumatic disorders of both mitral and tricuspid valves; I27.20 Pulmonary hypertension, unspecified; M1A.9XX0 Chronic gout, unspecified, without tophus (tophi); I25.10 Atherosclerotic heart disease of native coronary artery without angina pectoris; M19.90 Unspecified osteoarthritis, unspecified site; E66.9 Obesity, unspecified; Z03.818 Encounter for observation for suspected exposure to other biological agents ruled out; Z68.28 Body mass index [BMI] 28.0-28.9, adult; Z79.899 Other long term (current) drug therapy; Z90.49 Acquired absence of other specified parts of digestive tract; Z98.890 Other specified postprocedural states; Z86.69 Personal history of other diseases of the nervous system and sense organs; Z96.652 Presence of left artificial knee joint; Z87.891 Personal history of nicotine dependence; Z80.1 Family history of malignant neoplasm of trachea, bronchus and lung; Z80.9 Family history of malignant neoplasm, unspecified
CPT/HCPCS: 93005 ×2; 96360; 96361 ×2; 99285; 36415; 95816; 93306; 85379; 80053; 80048; 83735; 84484 ×2; 85025 ×2; 85610; 85730; 81003; 71046; 93880; 70553; G0378 ×3; U0003; A9585

== ENCOUNTER → 2021-01-22 | Outpatient (CLI) | payer MEDICARE, OTHER ==
--- NOTE | 2021-01-22 16:04 | EEG ---
ELECTROENCEPHALOGRAM REPORT DATE OF SERVICE: 01/22/2021 PREAMBLE: This is a 80-year-old male who had two syncopal episodes over the last year and a half. He was admitted to [facility] after the first episode in July 2019. No evidence of loss of control of urine or tongue bite with these spells. He becomes sweaty and dizzy. The second episode happened last month in December 2020. He was getting [place] decorations/tree up and became dizzy and became unresponsive. EEG FINDINGS: This is a 21-channel digital EEG recorded with video component, utilizing 10/20 international system with referential and bipolar montages. Background consists of well developed, well regulated, moderate voltage activity in 10 hertz alpha. Background is posterior-dominant and reactive to eye opening and closing. Photic driving response was not seen. Hyperventilation was not performed. Some drowsiness was seen with appearance of bilaterally symmetric theta frequency rhythm. Some brief stage 2 sleep was seen with the presence of vertex waves and sleep spindles. EKG channel showed no arrhythmia. No focal or generalized epileptiform activity was seen. IMPRESSION: This is a normal sleep-deprived EEG. Awake, drowsy and stage 2 sleep was seen. No focal, lateralized or epileptiform activity was seen. MMODL / IJN: [id number] /
== END ==
LOC: NEUROMAIN 07:40
PROVIDERS: ATTEND Family Medicine
DX: G45.9 Transient cerebral ischemic attack, unspecified (principal); Z87.891 Personal history of nicotine dependence
CPT/HCPCS: 95816

== ENCOUNTER 2022-02-21 13:35 | Emergency (ER) | payer MEDICARE, OTHER ==
[2022-02-21 14:45] LABS: Basophils % (A) 0 %; Eosinophils # (A) 0.2 k/uL (0-0.7); Eosinophils % (A) 3 %; HCT 41.6 % (39.0-53.0); HGB 13.9 gm/dL (13.0-17.5); Lymphocytes % (A) 16 %; MCHC 33.5 g/dL (31.0-37.0); MCV 95.5 fL (80.0-100.0); Mean Platelet Volume 8.3; Monocytes # (A) 0.5 k/uL (0-1.0); Monocytes % (A) 8 %; Neutrophils # (A) 4.7 k/uL (1.3-7.7); Neutrophils % (A) 72 %; Platelet Count 194 k/uL (150-450); RBC 4.36 m/uL (4.30-5.90); RDW 12.6 % (11.5-15.5); WBC 6.5 k/uL (3.8-10.6)
[2022-02-21 14:58] LABS: Albumin 4.3 g/dL (3.5-5.0); Potassium 4.9 mmol/L (3.5-5.1); Total Bilirubin 0.6 mg/dL (0.2-1.3); Total Protein 7.1 g/dL (6.3-8.2)
[2022-02-21 15:15] LABS: Creatine Kinase 104 U/L (55-170)
[2022-02-21 15:28] LABS: Creatine Kinase MB 0.7 ng/mL (0.0-2.4); Troponin I <0.012 ng/mL (0.000-0.034)
--- NOTE | 2022-02-21 17:40 | XR ---
EXAMINATION TYPE: XR chest 2V DATE OF EXAM: 02/21/2022 COMPARISON: NONE HISTORY: Syncope TECHNIQUE: 3 view FINDINGS: Heart and mediastinum are normal. Lungs are clear. Diaphragm is normal. Bony thorax is inta ct. Pulmonary vascularity is normal. IMPRESSION: Normal chest.
--- NOTE | 2022-02-21 18:04 | ED ---
General Adult HPI - General Chief complaint: Syncope Stated complaint: syncope Time Seen by Provider: 02/21/22 16:36 Source: patient Mode of arrival: EMS - History of Present Illness Initial comments: This is an 81-year-old male with a past medical history including hypertension p resents emergency department for a presyncopal episode. The patient stated that he was walking around the mall and did his third lap around the mall and is significantly short amount of time and noted that after this became lightheaded and dizzy so he had to sit down. The patient did not have a syncopal episode however stated that he was lightheaded and needed to lay down and nearly had a syncopal episode. The patient's was present and did witness this. The patient was reportedly momentarily altered however came to immediately. The patient was given juice and water on scene and did state that his symptoms did improve significant only. The patient then stated to EMS that he just wanted to be evaluated in the emergency department to make sure he also is okay. The patient on arrival was resting in bed comfortably without any further acute pain or complaints. - Related Data Home Medications Medication Instructions Recorded Confirmed Atorvastatin Calcium [Lipitor] 40 mg PO DAILY 07/21/15 07/10/19 Metoprolol Succinate (ER) [Toprol 100 mg PO HS 07/21/15 07/10/19 XL] Terazosin HCl [Hytrin] 10 mg PO HS 07/21/15 07/10/19 allopurinoL [Zyloprim] 100 mg PO DAILY 07/21/15 07/10/19 Furosemide [Lasix] 20 - 40 mg PO DAILY PRN 07/10/19 07/10/19 Latanoprost/Pf [Latanoprost 0.005% 1 drop BOTH EYES HS 07/10/19 07/10/19 Eye Drop] Losartan [Cozaar] 25 mg PO DAILY 07/10/19 07/10/19 Previous Rx's Medication Instructions Recorded Aspirin 81 mg PO DAILY chew 07/12/19 amLODIPine [Norvasc] 5 mg PO DAILY #30 tab 07/12/19 Allergies Allergy/AdvReac Type Severity Reaction Status Date / Time No Known Allergies Allergy Verified 02/21/22 14:10 Review of Systems ROS Statement: Those systems with pertinent positive or pertinent negative responses have been documented in the HPI. ROS Other: All systems not noted in ROS Statement are negative. Past Medical History Past Medical History: Hyperlipidemia, Hypertension, Renal Disease Additional Past Medical History / Comment(s): GOUT, KIDNEY DISEASE-MODERATE History of Any Multi-Drug Resistant Organisms: None Reported Past Surgical History: Appendectomy Additional Past Surgical History / Comment(s): suzette eyelid, suzette carpal tunnel, D&C, rt knee arthroscopy, left knee replacement Past Anesthesia/Blood Transfusion Reactions: No Reported Reaction Past Psychological History: No Psychological Hx Reported Smoking Status: Never smoker Past Alcohol Use History: None Reported Past Drug Use History: None Reported - Past Family History Brother(s) Family Medical History: Cancer Additional Family Medical History / Comment(s): LUNG CANCER Sister(s) Family Medical History: Cancer Mother Family Medical History: Cancer General Exam Limitations: no limitations General appearance: alert, in no apparent distress Head exam: Present: atraumatic, normocephalic, normal inspection Eye exam: Present: normal appearance, PERRL Pupils: Present: normal accommodation ENT exam: Present: normal exam, normal oropharynx, mucous membranes moist Neck exam: Present: normal inspection, full ROM Respiratory exam: Present: normal lung sounds bilaterally Cardiovascular Exam: Present: regular rate, normal rhythm, normal heart sounds GI/Abdominal exam: Present: soft, normal bowel sounds Extremities exam: Present: normal inspection, full ROM Back exam: Present: normal inspection, full ROM Neurological exam: Present: alert, oriented X3, CN II-XII intact Psychiatric exam: Present: normal affect, normal mood Skin exam: Present: warm, dry Course Vital Signs 02/21/22 02/21/22 02/21/22 14:04 16:46 17:29 Temperature 97.9 F 97.1 F L Pulse Rate 74 67 Respiratory 18 16 Rate Blood Pressure 151/75 170/79 156/85 O2 Sat by Pulse 98 99 Oximetry 02/21/22 18:13 Temperature 98.1 F Pulse Rate 77 Respiratory 14 Rate Blood Pressure 158/89 O2 Sat by Pulse 97 Oximetry EKG Findings - EKG Comments: EKG Findings:: An EKG was obtained and was interpreted by myself showing a rate of 66,. We'll 196, QRS duration of 85 and QTC of 423. This EKG showed a normal sinus rhythm with no ST segment elevation or depression noted. Medical Decision Making - Medical Decision Making Was pt. sent in by a medical professional or institution (YOUNG Carney, TELETYPESETTER OPERATOR, urgent care, hospital, or intermediate...) When possible be specific @ -No Did you speak to anyone other than the patient for history (EMS, parent, family, police, friend...)? What history was obtained from this source @ -Yes, patient's Did you review nursing and triage notes (agree or disagree)? Why? @ -I reviewed and agree with nursing and triage notes Were old charts reviewed (outside hosp., previous admission, EMS record, old EKG, old radiological studies, urgent care reports/EKG's, intermediate records)? Report findings @ -No old charts were reviewed Differential Diagnosis (chest pain, altered mental status, abdominal pain women, abdominal pain men, vaginal bleeding, weakness, fever, dyspnea, syncope, headache, dizziness, GI bleed, back pain, seizure, CVA, palpatations, mental health)? @ -Vasovagal syncope, hypoglycemia EKG interpreted by me (3pts min.). @ -As above X-rays interpreted by me (1pt min.). @ -Chest x-ray was obtained and was interpreted by myself showing no acute process. CT interpreted by me (1pt min.). @ -None done U/S interpreted by me (1pt. min.). @ -None done What testing was considered but not performed or refused? (CT, X-rays, U/S, labs)? Why? @ -None What meds were considered but not given or refused? Why? @ -None Did you discuss the management of the patient with other professionals (professionals i.e. YOUNG Carney, TELETYPESETTER OPERATOR, lab, RT, psych nurse, adoption social worker, global cmo, teacher, executive vice president and chief operating officer, watch caser)? Give summary @ -No Was smoking cessation discussed for >3mins.? @ -No Was critical care preformed (if so, how long)? @ -No Were there social determinants of health that impacted care today? How? (Homelessness, low income, unemployed, alcoholism, drug addiction, transportation, low edu. Level, literacy, decrease access to med. care, assisted, rehab)? @ -No Was there de-escalation of care discussed even if they declined (Discuss DNR or withdrawal of care, Hospice)? DNR status @ -No What co-morbidities impacted this encounter? (DM, HTN, Smoking, COPD, CAD, Cancer, CVA, ARF, Chemo, Hep., AIDS, mental health diagnosis, sleep apnea, morbid obesity)? @ -High blood pressure Was patient admitted / discharged? Hospital course, mention meds given and route, prescriptions, significant lab abnormalities, going to OR and other pertinent info. @ -The patient was seen and evaluated emergency department. Physical exam, the patient was resting in bed without any acute distress. Vital signs were st able. All laboratory workup was within normal limits. The patient didn't have any acute complaints and was resting in bed company. The patient likely had a vasovagal syncope secondary to overexertion the patient was able to inflate throughout the emergency department without any lightheadedness or dizziness. The patient was stable for discharge home. The patient was advised to follow-up with his primary care physician for further workup and evaluations report back to the emergency department if his pain became acutely worse. The patient and his are agreeable to this and all his questions were answered. The patient was discharged home in stable condition. Undiagnosed new problem with uncertain prognosis? @ -No Drug Therapy requiring intensive monitoring for toxicity (Heparin, Nitro, Insulin, Cardizem)? @ -No Were any procedures done? @ -No Diagnosis/symptom? @ -Vasovagal syncope Acute, or Chronic, or Acute on Chronic? @ -Acute Uncomplicated (without systemic symptoms) or Complicated (systemic symptoms)? @ -Uncomplicated Side effects of treatment? @ -No Exacerbation, Progression, or Severe Exacerbation? @ -No Poses a threat to life or bodily function? How? (Chest pain, USA, CA, pneumonia, PE, COPD, DKA, ARF, appy, cholecystitis, CVA, Diverticulitis, Homicidal, Suicidal, threat to staff... and all critical care pts) @ -No - Lab Data Result diagrams: 02/21/22 14:12 02/21/22 14:12 Lab Results 02/21/22 02/21/22 02/21/22 Range/Units 14:12 14:12 14:12 WBC 6.5 (3.8-10.6) k/uL RBC 4.36 (4.30-5.90) m/uL Hgb 13.9 (13.0-17.5) gm/dL Hct 41.6 (39.0-53.0) % MCV 95.5 (80.0-100.0) fL MCH 32.0 (25.0-35.0) pg MCHC 33.5 (31.0-37.0) g/dL RDW 12.6 (11.5-15.5) % Plt Count 194 (150-450) k/uL MPV 8.3 Neutrophils % 72 % Lymphocytes % 16 % Monocytes % 8 % Eosinophils % 3 % Basophils % 0 % Neutrophils # 4.7 (1.3-7.7) k/uL Lymphocytes # 1.0 (1.0-4.8) k/uL Monocytes # 0.5 (0-1.0) k/uL Eosinophils # 0.2 (0-0.7) k/uL Basophils # 0.0 (0-0.2) k/uL Sodium 142 (137-145) mmol/L Potassium 4.9 (3.5-5.1) mmol/L Chloride 111 H (98-107) mmol/L Carbon Dioxide 24 (22-30) mmol/L Anion Gap 7 mmol/L BUN 35 H (9-20) mg/dL Creatinine 2.05 H (0.66-1.25) mg/dL Est GFR (CKD-EPI)AfAm 34 (>60 ml/min/1.73 sqM) Est GFR (CKD-EPI)NonAf 30 (>60 ml/min/1.73 sqM) Glucose 128 H (74-99) mg/dL Calcium 9.0 (8.4-10.2) mg/dL Total Bilirubin 0.6 (0.2-1.3) mg/dL AST 34 (17-59) U/L ALT 40 (4-49) U/L Alkaline Phosphatase 120 (38-126) U/L Total Creatine Kinase 104 (55-170) U/L CK-MB (CK-2) 0.7 (0.0-2.4) ng/mL CK-MB (CK-2) Rel Index 0.7 Troponin I <0.012 (0.000-0.034) ng/mL Total Protein 7.1 (6.3-8.2) g/dL Albumin 4.3 (3.5-5.0) g/dL Disposition Clinical Impression: Vasovagal syncope Disposition: HOME SELF-CARE Condition: Stable Instructions (If sedation given, give patient instructions): Syncope (DC) Is patient prescribed a controlled substance at d/c from ED?: No Referrals: Bipin Tejada MD [Primary Care Provider] - 1-2 days Time of Disposition: 17:50
[2022-02-21 18:17] VITALS: BP 158/89; PULSE 77; RESP 14; TEMP 98.1
== END 2022-02-21 18:18 | disposition home or self-care (01) ==
LOC: EC 13:35
DX: R55 Syncope and collapse (principal); I12.9 Hypertensive chronic kidney disease with stage 1 through stage 4 chronic kidney disease, or unspecified chronic kidney disease; N18.9 Chronic kidney disease, unspecified; E78.5 Hyperlipidemia, unspecified; Z90.89 Acquired absence of other organs; Z96.652 Presence of left artificial knee joint; Z79.899 Other long term (current) drug therapy
CPT/HCPCS: 36415; 71046; 80053; 82550; 82553; 84484; 85025; 93005; 99285

== ENCOUNTER → 2022-04-21 | Outpatient (CLI) | payer MEDICARE, OTHER ==
--- NOTE | 2022-04-21 22:42 | EEG ---
ELECTROENCEPHALOGRAM REPORT CLINICAL HISTORY: This is an 81-year-old gentleman with reported syncopal episode. The video EEG is obtained to evaluate for seizure epileptiform activity. RELEVANT MEDICATION: The patient is not on any antiepileptic drug. EEG TYPE: A routine 21-channel EEG is performed with video using the 10/20 electrode placement system. DESCRIPTION: Wakefulness and drowsiness are obtained. During wakefulness, the posterior-dominant rhythm consists of low voltage of 8.5 to 9 hertz activity. There was no physiological stage 2 sleep architecture. There is no focal slowing. Interictal and ictal is none. ACTIVATION PROCEDURE: Photic stimulation did evoke a posterior driving response at multiple low flash frequency. No abnormality is noted during the photic stimulation. Hyperventilation is not performed. CLINICAL INTERPRETATION: This is a normal routine EEG. There is no focal slowing, epileptiform discharge, or seizure during the study. Normal routine EEG does not rule out underlying epilepsy. Clinical correlation is recommended. KRISTAN / ALF: [id number] /
== END ==
LOC: NEUROMAIN 07:53
PROVIDERS: ATTEND Family Medicine
DX: R55 Syncope and collapse (principal); Z87.891 Personal history of nicotine dependence
CPT/HCPCS: 95816

== ENCOUNTER → 2023-06-07 | Outpatient (CLI) | payer MEDICARE, OTHER ==
[2023-06-07 15:44] LABS: HCT 40.7 % (39.6-50.0); HGB 13.2 g/dL (13.0-17.0); MCHC 32.4 g/dL (32.0-37.0); MCV 98.5 FL (80.0-97.0); NRBC Per 100 WBC 0 X 10*3/uL (0.00-0.01); Platelet Count 220 X 10*3/uL (140-440); RBC 4.13 X 10*6/uL (4.40-5.60); RDW 13.2 % (11.5-14.5); WBC 5.86 X 10*3/uL (4.50-10.00)
[2023-06-07 22:22] LABS: NT-Pro-B-Type Natriuretic Pept 504 pg/mL (0-450)
[2023-06-07 22:27] LABS: BUN/Creat Ratio 16.24 Ratio (12.00-20.00); Blood Urea Nitrogen 34.1 mg/dL (9.0-27.0); Calcium 9.7 mg/dL (8.7-10.3); Carbon Dioxide 20.5 mmol/L (21.6-31.8); Chloride 107 mmol/L (96-109); Glucose 111 mg/dL (70-110); Potassium 5.4 mmol/L (3.5-5.5); Sodium 140 mmol/L (135-145)
== END | disposition home or self-care (01) ==
LOC: LABWHC1 08:36
PROVIDERS: ATTEND Nurse Practitioner Adult Health
DX: R60.0 Localized edema (principal); R06.02 Shortness of breath
CPT/HCPCS: 36415; 80048; 83880; 85027

== ENCOUNTER → 2023-10-24 | Outpatient (CLI) | payer MEDICARE, OTHER ==
[2023-10-24 14:14] VITALS: BP 148/67; PULSE 64; RESP 16; TEMP 98
--- NOTE | 2023-10-24 16:00 | P.SLEEP ---
History of Present Illness H&P Date: 10/24/23 This is an 83-year-old male patient with known history of obstructive sleep apnea who is coming in to establish care with me in the office. The same time, the patient has chronic issues with exertional dyspnea and I asked him that his pulmonary evaluation is to be done at a separate time at the pulmonary clinic and the main focus of the evaluation today will be sleep apnea management. The patient says that he has been diagnosed having obstructive sleep apnea more than 10 years ago. This diagnosed was established with primary care and the patient was given a CPAP machine through [facility]. Over the years, the patient been very compliant with CPAP therapy and recently his machine has been acting up, it is very noisy, dysfunctional humidification system and the patient is waking up with a dry mouth and his machine is sometimes turning up unexpectedly in the middle of the night. Based on that, he is very much interested in updating his CPAP machine. Checking his compliance data from his machine and noted that the patient has been utilizing his machine in an APAP mode pressures of 5/15 cm of water. Based on a 30-day compliancy, the patient has been utilizing his machine every night and is averaging around 5.8 hours of CPAP use per night. 95th percentile pressure as delivered by the machine is around 13.7. He has a leak of 31 L/min and his AHI is down to 1.3 indicating successful treatment. His climate line is set at the temperature of 81 F and is humidity is automatic. No snoring while on treatment. He is using the Eson nasal mask, medium size. He is currently retired. He goes to bed around 10 PM wakes up 7 AM in the morning. His current Warfield score is at 6. No recent weight gain. No nighttime chest pain or shortness of breath or heartburn. At times, he feels restless in the middle of the night. No history of any motor vehicle accident because of feeling drowsy or sleepy. Review of Systems Constitutional: Reports daytime sleepiness, Reports fatigue Eyes: denies as per HPI, denies blurred vision, denies bulging eye, denies decreased vision, denies diplopia, denies discharge, denies dry eye, denies irritation, denies itching, denies pain, denies photophobia, denies loss of peripheral vision, denies loss of vision, denies tunnel vision/blind spots Ears: deny: decreased hearing, ear discharge, earache, tinnitus Ears, nose, mouth and throat: Reports as per HPI Cardiovascular: Reports as per HPI Respiratory: Reports sleep apnea, Reports snoring Gastrointestinal: Reports as per HPI Genitourinary: Reports as per HPI Musculoskeletal: Reports as per HPI Musculoskeletal: absent: ankle pain, ankle stiffness, ankle swelling, as per HPI, elbow pain, elbow stiffness, elbow swelling, foot pain, foot stiffness, foot swelling, hand pain, hand stiffness, hand swelling, hip pain, hip stif fness, hip swelling, knee pain, knee stiffness, knee swelling, shoulder pain, shoulder stiffness, shoulder swelling, wrist pain, wrist stiffness, wrist swelling Integumentary: Reports as per HPI Neurological: Reports as per HPI Psychiatric: Reports as per HPI, Reports hypersomnia, Reports sleep disturbances Endocrine: Reports as per HPI, Reports fatigue Hematologic/Lymphatic: Reports as per HPI Allergic/Immunologic: Reports as per HPI Past Medical History Past Medical History: Heart Failure, Hyperlipidemia, Hypertension, Prostate Disorder, Renal Disease (Chronic stage III kidney disease), Sleep Apnea/CP AP/BIPAP Additional Past Medical History / Comment(s): GOUT, erectile dysfunction History of Any Multi-Drug Resistant Organisms: None Reported Past Surgical History: Appendectomy Additional Past Surgical History / Comment(s): suzette eyelid, suzette carpal tunnel, D&C, rt knee arthroscopy, left knee replacement Past Anesthesia/Blood Transfusion Reactions: No Reported Reaction Past Psychological History: No Psychological Hx Reported Smoking Status: Never smoker Past Alcohol Use History: None Reported Additional Past Alcohol Use History / Comment(s): STARTED SMOKING AT AGE 19 QUIT IN 2 Past Drug Use History: None Reported - Past Family History Brother(s) Family Medical History: Cancer Additional Family Medical History / Comment(s): LUNG CANCER Sister(s) Family Medical History: Cancer Mother Family Medical History: Cancer Father Additional Family Medical History / Comment(s): Arthritis Unnown type Medications and Allergies Home Medications Medication Instructions Recorded Confirmed Type Atorvastatin Calcium [Lipitor] 40 mg PO DAILY 07/21/15 10/24/23 History Metoprolol Succinate (ER) [Toprol 100 mg PO HS 07/21/15 10/24/23 History XL] Terazosin HCl [Hytrin] 10 mg PO HS 07/21/15 10/24/23 History allopurinoL [Zyloprim] 100 mg PO DAILY 07/21/15 07/10/19 History Furosemide [Lasix] 20 - 40 mg PO DAILY PRN 07/10/19 07/10/19 History Latanoprost/Pf [Latanoprost 0.005% 1 drop BOTH EYES HS 07/10/19 07/10/19 History Eye Drop] Losartan [Cozaar] 25 mg PO DAILY 07/10/19 10/24/23 History Aspirin 81 mg PO DAILY chew 07/12/19 10/24/23 Rx amLODIPine [Norvasc] 5 mg PO DAILY #30 tab 07/12/19 10/24/23 Rx Allergies Allergy/AdvReac Type Severity Reaction Status Date / Time No Known Allergies Allergy Verified 02/21/22 14:10 Physical Exam Vitals: Vital Signs Temp Pulse Resp BP Pulse Ox 10/24/23 14:12 98.0 F 64 16 148/67 99 Intake and Output 10/24/23 10/24/23 10/24/23 06:59 14:59 22:59 Other: Weight 87.09 kg The patient appeared well nourished and normally developed. Vital signs as documented. Head exam is unremarkable. No scleral icterus or corneal arcus noted. Neck is without jugular venous distension, thyromegaly, or carotid bruits. Carotid upstrokes are brisk bilaterally. Lungs are clear to auscultation and percussion. Cardiac exam reveals the PMI to be normally sized and situated. Rhythm is regular. First and second heart sounds normal. No murmurs, rubs or gallops. Abdominal exam reveals normal bowel sounds, no masses, no organomegaly and no aortic enlargement. Extremities are nonedematous and both femoral and pedal pulses are normal. Examination of the skin revealed no evidence of significant rashes, suspicious appearing nevi or other concerning lesions. Neurologically, the patient is awake and alert and the patient does not have any focal neurological deficit. Cranial nerves are essentially intact. Assessment and Plan Plan: Obstructive sleep apnea. Originally diagnosed with established more than 10 years ago. As such, the severity of his underlying obstructive sleep apnea is not known to be at this point. Nevertheless, based on checking his CPAP machine, the patient has been compliant with CPAP therapy while utilizing an APAP mode pressures of 5/15 cm of water. Based on the compliance data, his treatment is successful and he has no significant residual obstructive respiratory events while being on CPAP therapy. His machine is old and malfunctioning and needs to be updated. He has been using the same machine for more than 10 years. Chronic hypersomnia, improved with CPAP therapy Chronic exertional dyspnea Hypertension Hyperlipidemia Chronic stage IIIb kidney disease History of orthostatic hypotension Gout Cramps in his lower extremities Glucoma Systolic heart failure Plan The patient will be offered a new CPAP machine. I suggested a ResMed 11 CPAP unit and the prescription was sent to [facility]. Will utilize the same CPAP pressure of 5/15 cm of water automatic mode. At the same time, I updated the patient's mask and I offered him the AirFit N20 medium size nasal mask. The patient will continue his treatment with a newer CPAP unit and the patient was seen back in office in 30 to 90 days for a compliancy check. He is also interested in doing a pulmonary evaluation. Going to take the opportunity to get his records from cardiology and evaluate any previous cardiac workup. Will be glad to evaluate his dyspnea by chest x-ray and pulm function test in the office. As such, the follow-up appointment will be made in the pulmonary clinic. He is a non-smoker. No history of malignancy. His CHF seems to be compensated this point in time. Medication was reviewed. Patient is related to sleep hygiene was discussed. Will continue to follow. Sleep Note - Sleep Data ESS Total: 6 - Sleep Note Sleep Note: Temperature: 98.0 F Pulse Rate: 64 Respiratory Rate: 16 Blood Pressure: 148/67 SpO2: 99 Height: 5 ft 6 in Weight: 87.09 kg BMI: Neck Circumference: 16.5
== END ==
LOC: 3 N SLEEP 13:49
PROVIDERS: ATTEND Internal Medicine Critical Care Medicine
CPT/HCPCS: 99211